=== PATIENT | female | born 1955 | race Caucasian/White ===

== ENCOUNTER → 2016-05-18 | Outpatient (CLI) | payer OTHER ==
--- NOTE | 2016-05-18 12:03 | MA ---
Screening Digital Mammogram with Tomosynthesis Clinical Indications: Routine screening. Personal history of right breast carcinoma. Technique: Standard cephalocaudal and mediolateral oblique projections are obtained. This examinati on is processed by the [employer] computer aided detection system. Comparison: Post stereotactic biopsy right breast May 13, 1715, diagnostic right mammogram 2015, bilateral mammogram May 16, 2015, April 2014 and April 2013 Breast density: B; There are scattered fibroglandular densities. Findings: CAD was reviewed. There are post therapeutic changes in the right breast. No suspicious fi ndings are identified. Impression: Benign mammogram. BI-RADS 2. Recommendation: Routine screening is recommended in one year. Results and recommendation were communicated to the patient at the time of the examination. [facility] [employer] will send a result letter to the patient. Negative mammography should not preclude additional workup of a clinically suspicious finding. The patient's information is entered into a reminder system with a target due date for her next mammo gram.
== END ==
LOC: FIMAGING 11:18
DX: Z12.31 Encounter for screening mammogram for malignant neoplasm of breast (principal); Z85.3 Personal history of malignant neoplasm of breast
CPT/HCPCS: G0202

== ENCOUNTER → 2017-01-16 | Outpatient (CLI) | payer OTHER | LOC: FIMAGING 10:37 | PROVIDERS: ATTEND Podiatrist Primary Podiatric Medicine | DX: M77.31 Calcaneal spur, right foot (principal) ==

== ENCOUNTER 2017-03-20 08:43 | Day surgery (SDC) | payer OTHER ==
[~2017-03-20 08:43] MED LIST: ceFAZolin 2 GM/SWFI 2 GM/20 ML SYR IVP ONE
[2017-03-20 09:24] VITALS: PULSE 87
[2017-03-20] MEDS ORDERED: LR 1,000 ML IV ONE (09:26)
--- NOTE | 2017-03-20 09:30 | PDHPUP ---
History & Physical Update H&P update statement: This history and physical update is based on an assessment of the patient which was completed after admission or registration (within 24 hours), but prior to the surgery/procedure.
[2017-03-20] MEDS ORDERED: ceFAZolin 2 GM/SWFI 20 ML SYR IVP ONE (09:31)
[2017-03-20] MEDS ORDERED: BUPIVACAINE 0.25% 30 ML SDV ONE (09:44)
[2017-03-20] MEDS ORDERED: ceFAZolin 1 GM VIAL ONE (09:44)
[2017-03-20] MEDS ORDERED: ceFAZolin 1 GM/5 ML SYR ONE (09:44)
[2017-03-20] MEDS ORDERED: MIDAZOLAM 2 MG/2 ML VIAL IVP ONE (09:45)
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
[2017-03-20] MEDS ORDERED: fentaNYL 100 MCG/2 ML INJ ONE (09:55)
[2017-03-20] MEDS ORDERED: MIDAZOLAM 2 MG/2 ML VIAL ONE (09:55)
[2017-03-20] MEDS ORDERED: HYDROCODONE/APAP 5/325 TAB PO PRN (10:34)
[2017-03-20] MEDS ORDERED: ENALAPRILAT DIHYDRATE 1.25 MG/ML VIAL IVP PRN (10:34)
[2017-03-20] MEDS ORDERED: LR 500 ML IV PRN (10:34)
[2017-03-20] MEDS ORDERED: fentaNYL 100 MCG/2 ML INJ IVP PRN (10:34)
[2017-03-20] MEDS ORDERED: ONDANSETRON 4 MG/2 ML VIAL IVP PRN (10:34)
[2017-03-20] MEDS ORDERED: NALOXONE HCL 0.4 MG/ML INJ IVP PRN (10:34)
[2017-03-20] MEDS ORDERED: MEPERIDINE 25 MG/ML SYR IVP PRN (10:34)
[2017-03-20] MEDS ORDERED: OXYCODONE/APAP 5/325 TAB PO PRN (10:34)
[2017-03-20] MEDS ORDERED: ACETAMINOPHEN 500 MG TAB PO PRN (10:34)
[2017-03-20] MEDS ORDERED: PROMETHAZINE HCL 25 MG/ML INJ IVP PRN (10:34)
--- NOTE | 2017-03-20 11:04 | POSTANESTH ---
Post Anesthetic Evaluation Cardiovascular Status: Normal, Stable, Similar to Pre-Op Cond Respiratory Status: Normal, Stable, Similar to Pre-op Cond. Level of Consciousness/Mental Status: Can Participate in Eval, Mildly Sleepy, Arousable Pain Control: Adequate, Prn Tx Ordered Nausea/Vomiting Control: Adequate, Prn Tx Ordered Complications Possibly Related to Anesthesia: None Noted
[2017-03-20 11:38] VITALS: TEMP 97.5
[2017-03-20 11:57] VITALS: BP 113/77; O2SAT 96
[2017-03-20 11:58] VITALS: RESP 16
--- NOTE | 2017-04-25 12:08 | GOP ---
[f rep st] OPERATIVE REPORT DATE OF OPERATION: 03/20/2017 SURGEON: Christian Bardales DPM DIRECTOR OF STRATEGIC PARTNERSHIPS: Kalyan ANESTHESIOLOGIST: Hossein Mott MD PREOPERATIVE DIAGNOSIS: Calcaneal spur, plantar/proximal. POSTOPERATIVE DIAGNOSIS: Calcaneal spur, plantar/proximal. PROCEDURE PERFORMED: Excision of calcaneal spur. FINDINGS: DESCRIPTION OF PROCEDURE: The patient was taken to the operating room and placed on the table in the supine position. Local anesthetic was administered by Dr. Love during concomitant IV sedation by Dr. Mott. The patient's right foot, ankle, and lower leg were prepped and draped in the usual asepti c manner, establishing a sterile field for surgery. A disposable pneumatic tourniquet over heavy Ker lix padding at ankle level was inflated to 225 mmHg following sterile Esmarch bandage exsanguination of the foot. This provided intraoperative hemostasis. A skin knife made a 4 cm curvilinear incision over the proximal plantar medial aspect of the patient's right calcaneus. The incision was bluntly deepened to the level of the calcaneus, and then, utilizing elevators, the soft tissue attachments we re freed from about the area of the spur. Utilizing intraoperative fluoroscopy, the spur was approac hed with a variety of bone rasps, smoothing down the area where spur was present. Imaging intraopera tively showed no remaining evidence of the spur. Copious irrigation was performed, and the incision was closed with 5-0 Prolene. Betadine-soaked Olivier silk was laid over the incision, and the foot rec eived a complete sterile dressing. Tourniquet was released. Digital circulation returned to normal immediately. Hemostasis was well maintained. The patient was taken to Recovery in good condition, h aving tolerated surgery and anesthesia well. Estimated blood loss minimal. No specimen. No complicat ions. Postoperative instructions previously gone over were reinforced, and the prognosis is good. S NR, including below. /[id number]/MODL
== END 2017-03-20 12:08 | disposition home or self-care (01) ==
LOC: FSGY 08:43
PROVIDERS: ATTEND Podiatrist Primary Podiatric Medicine
PROC: 0QBN0ZZ Excision of Right Metatarsal, Open Approach (ICD-10-PCS; principal; 2017-03-20 11:00)
DX: M77.31 Calcaneal spur, right foot (principal); I10 Essential (primary) hypertension; R73.03 Prediabetes
CPT/HCPCS: J0171; J0690; J2250; J3010

== ENCOUNTER → 2017-05-22 | Outpatient (CLI) | payer OTHER | LOC: FIMAGING 08:37 | PROVIDERS: ATTEND Internal Medicine | DX: Z12.31 Encounter for screening mammogram for malignant neoplasm of breast (principal); Z80.3 Family history of malignant neoplasm of breast ==

== ENCOUNTER → 2018-05-23 | Outpatient (CLI) | payer OTHER | LOC: FIMAGING 09:25 | PROVIDERS: ATTEND Internal Medicine Hematology & Oncology | DX: Z12.31 Encounter for screening mammogram for malignant neoplasm of breast (principal); Z85.3 Personal history of malignant neoplasm of breast ==